=== PATIENT | female | born 1995 | race Two or more races ===

== ENCOUNTER 2018-09-25 02:23 | Emergency (ER) | payer SELFPAY ==
[~2018-09-25] VITALS: Ht 160 cm; Wt 59.0 kg
--- NOTE | 2018-09-25 02:55 | NUR ---
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 Pt verbalized "I have hx of bad kidneys." Pt is A, O/4, moves all extremities without difficulty. IV 20g rac started, labs drawn. Pt stated urine sample was submitted earlier.
[2018-09-25] MEDS ORDERED: MORPHINE SULFATE INJ 4 MG/ML DISP.SYRIN ONE (03:06)
[2018-09-25] MEDS ORDERED: ONDANSETRON HCL/PF 4 MG/2 ML VIAL ONE (03:07)
[2018-09-25] MEDS: IV NS 0.9% 1,000 ML BAG IV ONE (03:14)
[2018-09-25] MEDS: MORPHINE SULFATE INJ 2 MG/ML DISP.SYRIN IV ONE (03:15)
[2018-09-25] MEDS: ONDANSETRON HCL/PF 4 MG/2 ML VIAL IVP ONE (03:16)
[2018-09-25 03:19] LABS: BASOPHILS % (AUTO) 0.3 % (0.0-2.0); HEMATOCRIT 40 % (33-45); HEMOGLOBIN 13.3 g/dL (11.5-14.8); LYMPHOCYTES # (AUTO) 1.4 /CMM (0.8-4.8); LYMPHOCYTES % (AUTO) 14.7 % (20.0-44.0); MEAN CORPUSCULAR HGB CONC 33 g/dl (31.0-36.0); MEAN CORPUSCULAR VOLUME 87 fL (82-100); MONOCYTES % (AUTO) 10.6 % (2.0-12.0); NEUTROPHILS % (AUTO) 71.4 % (43.0-81.0); PLATELET COUNT (AUTO) 244 /CMM (150-450); WHITE BLOOD COUNT (AUTO) 9.7 K/uL (4.3-11.0)
--- NOTE | 2018-09-25 03:20 | NUR ---
Pt transported to Radiology for Ct Abd/Pelvis
[2018-09-25 03:21] LABS: APPEARANCE,URINE SL CLOUDY (CLEAR); BILIRUBIN,URINE NEGATIVE (NEGATIVE); BLOOD, URINE TRACE-INTA Ery/uL (NEGATIVE); COLOR,URINE YELLOW (YELLOW); KETONES,URINE NEGATIVE (NEGATIVE); LEUKOCYTE ESTERASE ,URINE 1+ (NEGATIVE); NITRITE, URINE POSITIVE (NEGATIVE); PROTEIN,URINE 1+ mg/dl (NEGATIVE); UGLUCOSE NEGATIVE (NEGATIVE); UROBILINOGEN,URINE 0.2 EU/dL (0.2)
[2018-09-25 03:39] LABS: ALBUMIN 3.5 g/dL (3.4-5.0); BILIRUBIN,DIRECT 0.1 mg/dL (0.0-0.2); BILIRUBIN,TOTAL 0.4 mg/dL (0.2-1.0); CALCIUM, SERUM 9.3 mg/dL (8.5-10.1); CREATININE 0.8 mg/dL (0.6-1.3); POTASSIUM 3.9 mmol/L (3.5-5.1); TOTAL PROTEIN, SERUM 7.5 g/dL (6.4-8.2)
[2018-09-25 03:51] LABS: BACTERIA,URINE Moderate /HPF (None Seen); SPERM,URINE Few /HPF (None Seen); SQUAMOUS EPITHELIAL CELL,UR Few /HPF (None Seen); WBC,URINE TOO NUMEROUS TO COUN /HPF (0-3)
--- NOTE | 2018-09-25 04:05 | NUR ---
Pt states her pain has subsided, resting comfortably in bed
--- NOTE | 2018-09-25 04:10 | NUR ---
Patient discharged to home in stable condition. Written and verbal after care instructions and prescription given. Patient verbalizes understanding of instruction.IV removed. Catheter intact and site benign. Pressure and 4x4 applied to site. No bleeding noted. Pt ambulatory with a steady gait
[2018-09-25 04:13] VITALS: BP 97/59
== END 2018-09-25 04:10 | disposition home or self-care (01) ==
LOC: ER 02:28
DX: N39.0 Urinary tract infection, site not specified (principal); F17.210 Nicotine dependence, cigarettes, uncomplicated; Z87.442 Personal history of urinary calculi; Z98.890 Other specified postprocedural states; Z88.0 Allergy status to penicillin; Z91.09 Other allergy status, other than to drugs and biological substances
CPT/HCPCS: 36415; 80048-TC; 80076-TC; 81000-TC; 85025-TC; 87086-TC; 87186-TC; A4606; J2270; J2405; J7030; Z7610

== ENCOUNTER 2024-05-03 09:49 | Inpatient (IN) | payer OTHER ==
[~2024-05-03] VITALS: Ht 160 cm; Wt 81.6 kg
[2024-05-03 10:01] VITALS: BP 134/86; TEMP 97.8; O2SAT 99
[2024-05-03] MEDS: IV NS 0.9% 1,000 ML BAG IV ONE (10:30)
[2024-05-03 11:06] LABS: BASOPHILS % (AUTO) 0.6 % (0.0-2.0); EOSINOPHILS # (AUTO) 0.4 K/uL (0.0-0.7); EOSINOPHILS % (AUTO) 6.9 % (0.0-6.0); HEMATOCRIT 38 % (33-45); HEMOGLOBIN 12.9 g/dL (11.5-14.8); LYMPHOCYTES # (AUTO) 2.7 K/uL (0.8-4.8); MEAN CORPUSCULAR HEMOGLOBIN 28 PG (26.0-33.0); MEAN CORPUSCULAR HGB CONC 34 g/dl (31.0-36.0); MEAN CORPUSCULAR VOLUME 83 fL (82-100); MONOCYTES # (AUTO) 0.6 K/uL (0.1-1.30); NEUTROPHILS # (AUTO) 2.7 K/uL (1.8-8.9); NEUTROPHILS % (AUTO) 41.5 % (43.0-81.0); PLATELET COUNT (AUTO) 344 K/uL (150-450); RED BLOOD CELL COUNT(AUTO) 4.54 MIL/uL (4.0-5.2); RED CELL DISTRIBUTION WIDTH 13.6 % (11.5-15.0); WHITE BLOOD COUNT (AUTO) 6.4 K/uL (4.3-11.0)
[2024-05-03 11:20] LABS: INR 0.97 (0.91-1.10); PARTIAL THROMBOPLASTIN TIME 27.9 SEC (24.3-34.3); PROTHROMBIN TIME 10.3 SECS (9.2-11.1)
[2024-05-03] MEDS ORDERED: CLINDAMYCIN 600 MG in IV D5W 100 ML IV ONE (11:30)
[2024-05-03 11:33] LABS: ALBUMIN 3.3 g/dL (3.4-5.0); BILIRUBIN,DIRECT 0.1 mg/dL (0.0-0.2); BILIRUBIN,TOTAL 0.3 mg/dL (0.2-1.0); CALCIUM, SERUM 8.7 mg/dL (8.5-10.1); CREATININE 0.9 mg/dL (0.6-1.3); POTASSIUM 3.8 mmol/L (3.5-5.1); TOTAL PROTEIN, SERUM 7.7 g/dL (6.4-8.2)
[2024-05-03 11:46] LABS: LACTIC ACID 0.9 mmol/L (0.4-2.0)
[2024-05-03] MEDS: CLINDAMYCIN 600 MG in IV NS 0.9% 46 ML IV ONE (11:48)
[2024-05-03] MEDS ORDERED: PANTOPRAZOLE 40 MG TABLET.DR PO SCH (13:00)
[2024-05-03] MEDS ORDERED: MAGNESIUM HYDROXIDE 30 ML UDC PO PRN (13:00)
[2024-05-03] MEDS ORDERED: ZOLPIDEM TARTRATE 5 MG TABLET PO PRN (13:00)
[2024-05-03] MEDS ORDERED: IV D5/0.45 NACL 1,000 ML IV PRN (13:00)
[2024-05-03] MEDS ORDERED: Z GUARD REMEDY 4 OZ OINT TP PRN (13:00)
[2024-05-03] MEDS ORDERED: ONDANSETRON HCL/PF 4 MG/2 ML VIAL IVP PRN (13:00)
[2024-05-03] MEDS ORDERED: ACETAMINOPHEN 325 MG TABLET PO PRN (13:00)
[2024-05-03] MEDS ORDERED: MAG HYDROX/AL HYDROX/SIMETH 30 ML UDC PO PRN (13:00)
[2024-05-03] MEDS ORDERED: ENOXAPARIN SODIUM 40 MG/0.4 ML DISP.SYRIN SQ SCH (13:00)
[2024-05-03] MEDS ORDERED: HYDROCODONE/APAP 5/325MG TABLET PO PRN (13:00)
[2024-05-03] MEDS ORDERED: CLINDAMYCIN PHOSPHATE IV 600 MG/4 ML VIAL IV SCH (20:00)
[2024-05-03] MEDS ORDERED: CLINDAMYCIN 600 MG in IV NS 0.9% 46 ML IV SCH (20:00)
== END 2024-05-03 15:15 | disposition left against medical advice (07) | DRG 114 ==
LOC: ER 09:49 → MED 13:27
PROVIDERS: ADMIT Nurse Practitioner Acute Care; ATTEND Nurse Practitioner Acute Care
DX: K04.7 Periapical abscess without sinus (principal); R78.81 Bacteremia; Z88.0 Allergy status to penicillin; F17.210 Nicotine dependence, cigarettes, uncomplicated; F12.90 Cannabis use, unspecified, uncomplicated; Z87.442 Personal history of urinary calculi; E66.9 Obesity, unspecified; Z68.31 Body mass index [BMI] 31.0-31.9, adult
CPT/HCPCS: 36415; 80048-TC; 80076-TC; 83605-TC; 84702-TC; 85025-TC; 85730-TC; 87040-TC; 93307-TC; A4223; G0378; J3490; J7060

== ENCOUNTER 2025-02-22 18:36 | Emergency (ER) | payer OTHER ==
[~2025-02-22] VITALS: Ht 160 cm; Wt 79.4 kg
[2025-02-22] MEDS ORDERED: ACET-2605 PO (19:07)
[2025-02-22] MEDS ORDERED: TRAM50TA2 PO (19:07)
[2025-02-22] MEDS ORDERED: IBUP-1490 PO (19:07)
[2025-02-22] MEDS ORDERED: ACETAMINOPHEN ES 500 MG TABLET ONE (19:08)
[2025-02-22] MEDS ORDERED: TRAMADOL HCL 50 MG TABLET ONE (19:08)
[2025-02-22] MEDS: ACETAMINOPHEN ES 500 MG TABLET PO ONE (19:15)
[2025-02-22 19:16] VITALS: BP 132/80; TEMP 98.6; O2SAT 99
[2025-02-22] MEDS: TRAMADOL HCL 50 MG TABLET PO ONE (19:16)
== END 2025-02-22 19:17 | disposition home or self-care (01) ==
LOC: ER 18:36
DX: K02.9 Dental caries, unspecified (principal); F17.200 Nicotine dependence, unspecified, uncomplicated; Z87.442 Personal history of urinary calculi; Z88.0 Allergy status to penicillin

== ENCOUNTER 2025-04-27 10:59 | Emergency (ER) | payer OTHER ==
[~2025-04-27] VITALS: Ht 170.2 cm; Wt 90.3 kg
[~2025-04-27 10:59] MED LIST: ACET-2605 PO; IBUP-1490 PO; TRAM50TA2 PO
[2025-04-27] MEDS ORDERED: METOCLOPRAMIDE HCL 10 MG/2 ML VIAL ONE (11:39)
[2025-04-27] MEDS ORDERED: FAMOTIDINE/PF INJ 20 MG/2 ML VIAL IV ONE (11:39)
[2025-04-27] MEDS: IV NS 0.9% 1,000 ML BAG IV ONE (11:44)
[2025-04-27] MEDS: METOCLOPRAMIDE HCL 10 MG/2 ML VIAL IV ONE (11:45)
[2025-04-27] MEDS: FAMOTIDINE/PF INJ 20 MG/2 ML VIAL IV ONE (11:45)
[2025-04-27 11:51] LABS: PLATELET COUNT (AUTO) 300 K/uL (150-450); RED BLOOD CELL COUNT(AUTO) 4.78 MIL/uL (4.0-5.2); RED CELL DISTRIBUTION WIDTH 14.0 % (11.5-15.0); WHITE BLOOD COUNT (AUTO) 8.2 K/uL (4.3-11.0)
[2025-04-27 11:52] LABS: CALCIUM, SERUM 9.4 mg/dL (8.5-10.1); CREATININE 0.9 mg/dL (0.6-1.3); SODIUM SERUM 140.0 mmol/L (136-145); UREA NITROGEN, BLOOD 8.0 mg/dL (7-18)
[2025-04-27 11:58] LABS: ASPARTATE AMINOTRANSFERASE 18.0 U/L (15-37); TOTAL PROTEIN, SERUM 7.8 g/dL (6.4-8.2)
[2025-04-27 13:10] LABS: APPEARANCE,URINE CLEAR (CLEAR); BLOOD, URINE Negative Ery/uL (NEGATIVE); LEUKOCYTE ESTERASE ,URINE Trace (NEGATIVE); UGLUCOSE Negative (NEGATIVE)
[2025-04-27 13:11] LABS: NITRITE, URINE NEGATIVE (NEGATIVE); PREGNANCY TEST URINE QUAL NEGATIVE (NEGATIVE)
[2025-04-27] MEDS ORDERED: FAMO20TA8 PO (13:12)
[2025-04-27] MEDS ORDERED: METO-295 PO (13:12)
[2025-04-27 13:18] LABS: ADD URINE CULTURE YES; SQUAMOUS EPITHELIAL CELL,UR Many /HPF (None Seen)
[2025-04-27 13:47] VITALS: BP 124/81; TEMP 98.2; O2SAT 97
== END 2025-04-27 13:48 | disposition home or self-care (01) ==
LOC: ER 11:13
DX: R11.2 Nausea with vomiting, unspecified (principal); R10.9 Unspecified abdominal pain; F17.200 Nicotine dependence, unspecified, uncomplicated; Z88.0 Allergy status to penicillin; Z79.899 Other long term (current) drug therapy
CPT/HCPCS: 99284; 96374; 96361; 96375; 85025; 80048; 83690; 80076; 84703; 81001; 36415; J1308; J2765; J7030; 87086-TC

== ENCOUNTER 2025-08-19 05:16 | Emergency (ER) | payer OTHER ==
[~2025-08-19] VITALS: Ht 160 cm; Wt 72.6 kg
[~2025-08-19 05:16] MED LIST changes: +FAMO20TA8 PO; +METO-295 PO
[2025-08-19] MEDS ORDERED: DOXYCYCLINE HYCLATE (100 MG) 100 MG TABLET ONE (05:48)
[2025-08-19] MEDS ORDERED: DOXY100T2 PO (05:49)
[2025-08-19] MEDS ORDERED: AZITHROMYCIN 250 MG TABLET ONE (05:49)
[2025-08-19] MEDS: DOXYCYCLINE HYCLATE (100 MG) 100 MG TABLET PO ONE (05:53)
[2025-08-19] MEDS: AZITHROMYCIN 250 MG TABLET PO ONE (05:53)
[2025-08-19 06:03] VITALS: BP 134/84; TEMP 98.6; O2SAT 98
[2025-08-19 06:08] LABS: APPEARANCE,URINE CLEAR (CLEAR); BLOOD, URINE TRACE-INTA Ery/uL (NEGATIVE); LEUKOCYTE ESTERASE ,URINE 1+ (NEGATIVE); NITRITE, URINE POSITIVE (NEGATIVE); UGLUCOSE NEGATIVE (NEGATIVE)
[2025-08-19 06:09] LABS: PREGNANCY TEST URINE QUAL NEGATIVE (NEGATIVE)
[2025-08-19 06:35] LABS: ADD URINE CULTURE YES; CALCIUM OXALATE CRYSTALS,UR Rare /HPF (None Seen); SQUAMOUS EPITHELIAL CELL,UR 0-2 /HPF (None Seen)
[2025-08-20 22:11] LABS: CHLAMYDIA TRACHOMATIS NAA Negative (Negative); NEISSERIA GONORRHOEAE NAA Negative (Negative)
[2025-08-25] MEDS ORDERED: NITR100C6 PO (08:59)
== END 2025-08-19 06:03 | disposition home or self-care (01) ==
LOC: ER 05:19
DX: A64 Unspecified sexually transmitted disease (principal); F17.200 Nicotine dependence, unspecified, uncomplicated; Z88.0 Allergy status to penicillin
CPT/HCPCS: 81001; 84703-TC; 87086-TC; 87186-TC; 87491; 87591